=== PATIENT | female | born 1930 | race Caucasian/White ===

== ENCOUNTER → 2019-08-07 | Outpatient (CLI) | payer MEDICARE, OTHER ==
--- NOTE | 2019-08-07 14:57 | RADIOLOGY REPORT (SQ) ---
EXAM DESCRIPTION: HIP LEFT AP/LATERAL COMPLETED DATE/TIME: 08/07/2019 2:26 pm REASON FOR STUDY: PAIN IN LEFT HIP M25.552 PAIN IN LEFT HIP M25.562 PAIN IN LEFT KNEE COMPARISON: None. NUMBER OF VIEWS: Two views. TECHNIQUE: AP pelvis and additional frog-leg view of the left hip. LIMITATIONS: None. FINDINGS: MINERALIZATION: Osteopenic LEFT HIP: No acute fracture. No malalignment. Advanced osteoarthritis is present with [id number] appearance, bony sclerosis along the femoral head and acetabular articular surfaces, and bulky bony s purring. RIGHT HIP: No fracture or dislocation. No worrisome bone lesions. PUBIS AND ISCHIUM: No fracture. PELVIS: No fracture. SACRUM: No fracture or dislocation. No worrisome bone lesions. LOWER LUMBAR SPINE: No fracture or dislocation. No worrisome bone lesions. No significant disc disea se. SOFT TISSUES: No findings. OTHER: No other significant finding. IMPRESSION: Advanced osteoarthritis left hip TECHNICAL DOCUMENTATION: JOB ID: [id number] [employer]- All Rights Reserved Reading location - IP/workstation name: [email or web address]
--- NOTE | 2019-08-07 14:58 | RADIOLOGY REPORT (SQ) ---
EXAM DESCRIPTION: KNEE LEFT 4 VIEWS COMPLETED DATE/TIME: 08/07/2019 2:26 pm REASON FOR STUDY: PAIN IN LEFT KNEE M25.552 PAIN IN LEFT HIP M25.562 PAIN IN LEFT KNEE COMPARISON: None. NUMBER OF VIEWS: Four views. TECHNIQUE: AP, lateral, and both oblique radiographic images acquired of the left knee. LIMITATIONS: None. FINDINGS: MINERALIZATION: Age-appropriate osteopenia/osteoporosis BONES: No acute fracture or dislocation. No worrisome bone lesions. JOINT: No suprapatellar knee joint effusion. Diffuse chondrocalcinosis. SOFT TISSUES: Curvilinear calcification of the popliteal fossa may represent debris in a Rosales's cyst . Popliteal artery calcification is also possible. Calcified phlebolith left upper calf. OTHER: No other significant finding. IMPRESSION: No acute fracture No knee joint effusion TECHNICAL DOCUMENTATION: JOB ID: [id number] [employer]- All Rights Reserved Reading location - IP/workstation name: [email or web address]
== END ==
LOC: OD 13:59
PROVIDERS: ATTEND Physician Assistant
DX: M16.12 Unilateral primary osteoarthritis, left hip (principal); M25.552 Pain in left hip; M25.562 Pain in left knee